=== PATIENT | male | born 1980 | race Caucasian/White ===

== ENCOUNTER → 2017-01-10 | Outpatient (CLI) | payer OTHER ==
[~2017-01-10] MED LIST: FLOXIN OTIC5 M1 AD; LORTAB 5/500 TA1 TA1 PO; PEN-VEE K PO
--- NOTE | ~2017-01-10 | CR184 ---
[facility] A Service of [facility] RADIOLOGY TEXT RESULTS PATIENT: VIRGINIA BRYANT LOCATION: SRA : [birth year] UNIT #: [id number] AGE: [address]: RAKESH DYE MD SEX: M ORDER DR: [id number] [place] [address] [id number] O MR#: [id number] Acc #: [id number] NAME: VIRGINIA BRYANT : 1980 SEX: M STUDY DATE/TIME: 01/10/2017 9:04 UNIT: [facility] ROOM: STUDY DESCRIPTION: CR Lumbar Spine Min 4 Views Attending Physician: Rakesh Dye M.D. Referring Physician: Rakesh Dye M.D. Ordering Physician: Rakesh Dye M.D. Primary Care Physician: Rakesh Dye M.D. MEDICAL IMAGING REPORT This report is preliminary unless electronic signature is present. EXAM Lumbar spine 6 views HISTORY Low back pain for 2 years. EXAM Exam very limited by body habitus. There is a slight dextroscoliosis but alignment is otherwise normal and the discs are well preserved. Dictated by... Anshul Valera M.D. THIS IS AN ELECTRONICALLY VERIFIED REPORT Anshul Valera M.D. at 01/10/2017 2:58 PM BENI/rodolfo TD: 01/10/2017 11:51 JOB #: [id number] MEDICAL IMAGING REPORT Page 1 of 1
== END | disposition home or self-care (01) ==
LOC: SRAD 08:52
DX: M54.5 Low back pain (principal)
CPT/HCPCS: 72110

== ENCOUNTER → 2017-03-19 | Outpatient (CLI) | payer OTHER ==
--- NOTE | ~2017-03-19 | PFT ---
[id number] [facility] [address] [place], [place] [address] [id number] O MR#: [id number] NAME: VIRGINIA BRYANT ROOM: SEX: [place] STUDY DATE/TIME: 03/26/2017 : 1980 AGE: 36 STUDY DESCRIPTION: Attending Physician: Spring Blount M.D. Referring Physician: Spring Blount M.D. Primary Care Physician: Spring Blount M.D. PULMONARY DIAGNOSTIC REPORT EXAM Pulmonary function test Spirometry is normal. There is no significant response to bronchodilators. Flow volume loop is normal. Lung volumes are essentially normal except for a reduced ERV which can be seen in obesity. Diffusion capacity is normal. Dictated by... Mert Rivera M.D. GURWINDER/shay TD: 03/26/2017 22:40 JOB #: [id number] PULMONARY DIAGNOSTIC REPORT Page 1 of 1
== END | disposition home or self-care (01) ==
LOC: CRC 09:17
DX: R06.02 Shortness of breath (principal)
CPT/HCPCS: 94060; 94726; 94729